=== PATIENT | male | born 1990 | race Caucasian/White ===

== ENCOUNTER 2017-09-15 11:04 | Outpatient (CLI) | payer MEDICAID ==
[2017-09-15] VITALS (19 sets, daily range): BP systolic 71–149; BP diastolic 53–91
[~2017-09-15 11:04] MED LIST: CYAN-19 PO; DIPH1TAB PO; MAGN400C PO; MULT-1179 PO; PANT40SU2 PO
== END 2017-09-15 23:59 | disposition home or self-care (01) ==
LOC: CARD DIAG 11:04
DX: R55 Syncope and collapse (principal); R11.0 Nausea; R51 Headache
CPT/HCPCS: 93660